=== PATIENT | female | born 1985 | race Caucasian/White ===

== ENCOUNTER 2018-07-07 18:06 | Emergency (ER) | payer MEDICAID ==
[2018-07-07 18:55] LABS: BILIRUBIN,URINE NEGATIVE (NEGATIVE); GLUCOSE, URINE (UA) NEGATIVE (NEGATIVE); KETONES,URINE (UA) NEGATIVE (NEGATIVE); LEUKOCYTE ESTERASE, URINE NEGATIVE (NEGATIVE); NITRITE,URINE NEGATIVE (NEGATIVE); OCCULT BLOOD,URINE TRACE-LYSE (NEGATIVE); PH,URINE 7.5 PH (5.0-7.5); PROTEIN,URINE NEGATIVE (NEGATIVE); UROBILINOGEN,URINE 0.2 (NORMAL) E.U./dL (NORMAL)
[2018-07-07 19:01] LABS: CLARITY,URINE CLEAR (CLEAR); HCG UR QUAL NEGATIVE
[2018-07-07] MEDS: SUCRALFATE 1 GM/10 ML UDC PO STA (19:06)
[2018-07-07] MEDS: FAMOTIDINE 20 MG TABLET PO STA (19:06)
[2018-07-07] MEDS: MAG HYDROX/AL HYDROX/SIMETH 30 ML UDC PO STA (19:06)
--- NOTE | 2018-07-07 19:06 | ED Physician Documentation ---
PD HPI ABD PAIN - Stated complaint Stated Complaint: STOMACH PX - Chief complaint Chief Complaint: Abd Pain - History obtained from History obtained from: Patient - History of Present Illness Timing - onset: How many days ago (3) Timing - duration: Days (3) Timing - details: Gradual onset Pain level max: 8 Pain level now: 6 Quality: Aching, Pain Location: Epigastric Improved by: Other (nothing) Worsened by: Eating Associated symptoms: Nausea, Vomiting. No: Fever, Hematemesis, Diarrhea, Constipation, Melena, Hematochezia, Dysuria, Hematuria Similar symptoms before: Diagnosis (pancreatitis) Recently seen: Not recently seen - Additional information Additional information: Patient is a 32-year-old female who states she has a history of chronic pancreatitis. States this was secondary to heavy drinking. States rarely drinks alcohol now. No recent increase. Started with epigastric pain and is now progressed to vomiting. No fevers. She states feels similar to her prior pancreatitis flares Review of Systems Constitutional: denies: Fever, Chills GI: reports: Nausea, Vomiting. 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 07/07/18 Ondansetron Odt [Zofran] 4 mg TL Q6H PRN #10 tablet 07/07/18 Oxycodone HCl/Acetaminophen 1 - 2 each PO Q6H PRN #10 tablet 07/07/18 [Percocet 5-325 mg Tablet] hydrOXYzine HCl [Hydroxyzine HCl] 07/07/18 - Allergies Allergies/Adverse Reactions: Allergies Allergy/AdvReac Type Severity Reaction Status Date / Time amoxicillin [Amoxicillin] Allergy Rash Verified 07/07/18 18:20 amoxicillin trihydrate * Allergy Rash Verified 07/07/18 18:20 [From Augmentin] potassium clavulanate * Allergy Rash Verified 07/07/18 18:20 [From Augmentin] montelukast sodium * AdvReac Unknown Verified 07/07/18 18:20 [From Singulair] - Social History Does the pt smoke?: Yes Smoking Status: Current every day smoker Does the pt drink ETOH?: No Does the pt have substance abuse?: No - Immunizations Immunizations are current?: No Immunizations: TDAP >10years/unknown - POLST Patient has POLST: No PD ED PE NORMAL - Vitals Vital signs reviewed: Yes - General General: Alert and oriented X 3, No acute distress, Well developed/nourished - HEENT HEENT: Moist mucous membranes - Neck Neck: Supple, no meningeal sign - Cardiac Cardiac: RRR - Respiratory Respiratory: No respiratory distress, Clear bilaterally - Abdomen Abdomen: Soft, Non distended, Other (Tender palpation epigastric without peritoneal signs) - Back Back: No spinal TTP - Derm Derm: Warm and dry - Neuro Neuro: Alert and oriented X 3 - Psych Psych: Normal mood, Normal affect Results - Vitals Vitals: Vital Signs - 24 hr 07/07/18 07/07/18 18:18 20:11 Temperature 36.7 C Heart Rate 109 H 90 Respiratory 15 16 Rate Blood Pressure 130/83 H 130/80 O2 Saturation 98 98 Oxygen O2 Source Room air - Labs Labs: Laboratory Tests 07/07/18 07/07/18 07/07/18 18:50 18:50 19:27 WBC 13.7 H RBC 4.84 Hgb 13.3 Hct 40.5 MCV 83.6 MCH 27.4 MCHC 32.8 RDW 13.8 Plt Count 298 MPV 8.3 Neut # (Auto) 10.5 H Lymph # (Auto) 2.2 Pratt # (Auto) 0.6 Eos # (Auto) 0.2 Baso # (Auto) 0.1 Absolute Nucleated RBC 0.01 Nucleated RBC % 0.0 Sodium Potassium Chloride Carbon Dioxide Anion Gap BUN Creatinine Estimated GFR (MDRD) Glucose Calcium Total Bilirubin AST ALT Alkaline Phosphatase Total Protein Albumin Globulin Albumin/Globulin Ratio Lipase Urine Color YELLOW Urine Clarity CLEAR Urine pH 7.5 Ur Specific [place] 1.025 1.025 Urine Protein NEGATIVE Urine Glucose (UA) NEGATIVE Urine Ketones NEGATIVE Urine Occult Blood TRACE-LYSE Urine Nitrite NEGATIVE Urine Bilirubin NEGATIVE Urine Urobilinogen 0.2 (NORMAL) Ur Leukocyte Esterase NEGATIVE Ur Microscopic Review NOT INDICATED Urine Culture Comments NOT INDICATED Urine HCG, Qual NEGATIVE 07/07/18 19:27 WBC RBC Hgb Hct MCV MCH MCHC RDW Plt Count MPV Neut # (Auto) Lymph # (Auto) Pratt # (Auto) Eos # (Auto) Baso # (Auto) Absolute Nucleated RBC Nucleated RBC % Sodium 137 Potassium 4.1 Chloride 99 L Carbon Dioxide 30 Anion Gap 8.0 BUN 12 Creatinine 0.6 Estimated GFR (MDRD) 114 Glucose 109 H Calcium 9.1 Total Bilirubin 0.7 AST 17 ALT 13 Alkaline Phosphatase 68 Total Protein 7.7 Albumin 4.4 Globulin 3.3 Albumin/Globulin Ratio 1.3 Lipase 33 Urine Color Urine Clarity Urine pH Ur Specific [place] Urine Protein Urine Glucose (UA) Urine Ketones Urine Occult Blood Urine Nitrite Urine Bilirubin Urine Urobilinogen Ur Leukocyte Esterase Ur Microscopic Review Urine Culture Comments Urine HCG, Qual PD MEDICAL DECISION MAKING - ED course Complexity details: reviewed results, re-evaluated patient, considered differential, d/w patient ED course: Patient is a 32-year-old female with what feels like her recurrent pancreatitis. She is well-appearing, nontoxic. Afebrile. Given Zofran and is tolerating p.o. without difficulty. Symptoms did not really change with GI cocktail. We discussed observation in the hospital with IV fluids and pain control, she declines this and would like to try outpatient therapy first. Will prescribe pain medication and Zofran for home. Follow a liquid diet and follow-up closely with her doctor. Patient counseled regarding signs and symptoms for which I believe and urgent re-evaluation would be necessary. Patient with good understanding of and agreement to plan and is comfortable going home at this time This document was made in part using voice recognition software. While efforts are made to proofread this document, sound alike and grammatical errors may occur. She does understand that if she fails to improve, she will likely receive a CT scan as well for confirmation. Departure - Departure Disposition: Home, Self Care Clinical Impression: Abdominal pain Qualifiers: Abdominal location: epigastric Qualified Code(s): R10.13 - Epigastric pain Condition: Good Instructions: ED Abdominal Pain Unkn Cause Follow-Up: your,doctor in 3 days [Other] Prescriptions: Omeprazole 20 mg PO DAILY #14 tablet. Ondansetron Odt [Zofran] 4 mg TL Q6H PRN #10 tablet PRN Reason: Nausea / Vomiting Oxycodone HCl/Acetaminophen [Percocet 5-325 mg Tablet] 1 - 2 each PO Q6H PRN #10 tablet PRN Reason: pain Comments: Return if you worsen. Continue the pain medication and Zofran as needed at home you should eat a very bland diet, stick to a liquid diet as much as possible for the next 24 hours. If you are failing to improve or worsening, please return for further evaluation. Do not drink alcohol or drive while on narcotic pain medicine. Note that many narcotic pain relievers also contain tylenol/acetaminophen. Please ensure that your total dose of acetaminophen from all sources does not exceed 3 grams (3000mg) per day. You may constipated on this medication, take a stool softener such as "Colace" twice a day while you are on it. Also recommend a [id number] laxative such as senna or MiraLAX any day that you do not have a bowel movement. If you received narcotic pain medication in the emergency department, do not drive or operate machinery for the next 24 hours. Discharge Date/Time: 07/07/18 20:11
[2018-07-07] MEDS: ONDANSETRON ODT 4 MG TABLET TL STA (19:07)
[2018-07-07 19:31] LABS: BASOPHILS # (AUTO) 0.1 10^3/uL (0.0-0.1); BASOPHILS % (AUTO) 0.8 %; EOSINOPHILS # (AUTO) 0.2 10^3/uL (0.0-0.7); EOSINOPHILS % (AUTO) 1.7 %; HGB - HEMOGLOBIN 13.3 g/dL (12.0-16.0); LYMPHOCYTES # (AUTO) 2.2 10^3/uL (1.5-3.5); LYMPHOCYTES % (AUTO) 16.3 %; MEAN CORPUSCULAR HEMOGLOBIN 27.4 pg (27.0-31.0); MEAN CORPUSCULAR HGB CONC 32.8 g/dL (32.0-36.0); MEAN CORPUSCULAR VOLUME 83.6 fL (81.0-99.0); MEAN PLATELET VOLUME 8.3 fL (7.9-10.8); MONOCYTES # (AUTO) 0.6 10^3/uL (0.0-1.0); MONOCYTES % (AUTO) 4.7 %; NEUTROPHILS # (AUTO) 10.5 10^3/uL (1.5-6.6); NEUTROPHILS % (AUTO) 76.5 %; PLT - PLATELET COUNT 298 10^3/uL (130-450); RED BLOOD COUNT 4.84 10^6/uL (4.20-5.40); RED CELL DISTRIBUTION WIDTH 13.8 % (12.0-15.0); WHITE BLOOD COUNT 13.7 x10^3/uL (4.8-10.8)
[2018-07-07 19:43] LABS: ALBUMIN 4.4 g/dL (3.2-5.5); ALBUMIN/GLOBULIN RATIO 1.3 (1.0-2.2); BILIRUBIN,TOTAL 0.7 mg/dL (0.2-1.0); CALCIUM 9.1 mg/dL (8.5-10.3); CREATININE 0.6 mg/dL (0.4-1.0); TOTAL PROTEIN 7.7 g/dL (6.7-8.2)
[2018-07-07] MEDS: ONDANSETRON ODT 4 MG Prepack 2 TL PRN (20:10)
[2018-07-07] MEDS: oxyCODONE/ACET 5/325 Prepack 4 PO STA (20:10)
[2018-07-07 20:14] VITALS: BP 130/80
== END 2018-07-07 20:11 | disposition home or self-care (01) ==
LOC: ED 18:06
DX: R10.13 Epigastric pain (principal); R11.2 Nausea with vomiting, unspecified; K86.1 Other chronic pancreatitis; F17.200 Nicotine dependence, unspecified, uncomplicated
CPT/HCPCS: 36415; 80053; 81003; 81025; 83690; 85025; 99283; A9270; Q0162; 81001; 87086

== ENCOUNTER 2018-07-11 14:49 | Emergency (ER) | payer MEDICAID ==
--- NOTE | 2018-07-11 17:13 | ED Physician Documentation ---
PD HPI LOWER EXT INJURY - Stated complaint Stated Complaint: FELL, PAIN R HIP/LEG - Chief complaint Chief Complaint: Ext Problem - History obtained from History obtained from: Patient - History of Present Illness PD HPI LOW EXT INJURY LOCATION: Right, Hip Type of injury: Fall Where injury occurred: Home Timing - onset: Last night Timing - duration: Hours Timing - details: Abrupt onset, Still present Improved by: Rest, Ice, Immobilization Worsened by: Moving, Palpating Associated symptoms: Swelling. No: Weakness, Numbness, Tingling Contributing factors: No: Anticoagulated Similar symptoms before: No diagnosis Recently seen: Not recently seen - Additional information Additional information: 32-year-old female fell onto her right hip last night and she has a lot of pain associated with this. She is fallen on this previously a number of years ago and has a defect in the muscle to the right hip. This is always bothered the patient a bit but she is able to ambulate without too much difficulty. She is able to ambulate tonight but has significant pain associated with this. Review of Systems Constitutional: denies: Fever Eyes: denies: Decreased vision Ears: denies: Ear pain Nose: denies: Congestion Respiratory: denies: Cough GI: denies: Vomiting Skin: denies: Rash Musculoskeletal: reports: Extremity pain, Joint pain, Pain with weight bearing. 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 07/07/18 Ondansetron Odt [Zofran] 4 mg TL Q6H PRN #10 tablet 07/07/18 Oxycodone HCl/Acetaminophen 1 - 2 each PO Q6H PRN #10 tablet 07/07/18 [Percocet 5-325 mg Tablet] hydrOXYzine HCl [Hydroxyzine HCl] 07/07/18 Hydrocodone/Acetaminophen 1 - 2 each PO Q6H PRN #14 tablet 07/11/18 [Hydrocodon-Acetaminophen 5-325] - Allergies Allergies/Adverse Reactions: Allergies Allergy/AdvReac Type Severity Reaction Status Date / Time amoxicillin [Amoxicillin] Allergy Rash Verified 07/11/18 15:06 amoxicillin trihydrate * Allergy Rash Verified 07/11/18 15:06 [From Augmentin] potassium clavulanate * Allergy Rash Verified 07/11/18 15:06 [From Augmentin] montelukast sodium * AdvReac Unknown Verified 07/11/18 15:06 [From Singulair] - Social History Does the pt smoke?: Yes Smoking Status: Current every day smoker Does the pt drink ETOH?: No Does the pt have substance abuse?: No - Immunizations Immunizations are current?: Yes Immunizations: TDAP current <10years - POLST Patient has POLST: No PD ED PE NORMAL - Vitals Vital signs reviewed: Yes (hypertensive) - General General: Alert and oriented X 3, No acute distress, Well developed/nourished - HEENT HEENT: Atraumatic, PERRL, EOMI - Respiratory Respiratory: No respiratory distress - Derm Derm: Normal color, Warm and dry, No rash - Extremities Extremities: Other (There is a subtle deformity to the soft tissues of the right hip. There is an area that appears to represent a muscle group. There is tenderness over the trochanter, she is able to bear weight and there is good ROM of the hip joint. ) - Neuro Neuro: Alert and oriented X 3, bias binding folder 2-12 intact, No motor deficit, No sensory deficit, Normal speech Eye Opening: Spontaneous Motor: Obeys Commands Verbal: Oriented GCS Score: 15 - Psych Psych: Normal mood, Normal affect Results - Vitals Vitals: Vital Signs - 24 hr 07/11/18 07/11/18 15:04 17:23 Temperature 37.1 C Heart Rate 99 80 Respiratory 14 16 Rate Blood Pressure 127/88 H 118/79 O2 Saturation 100 99 Oxygen O2 Source Room air - Rads (name of study) right hip. Radiology: Prelim report reviewed, EMP read indepedently, See rad report PD MEDICAL DECISION MAKING - ED course Complexity details: reviewed results, re-evaluated patient, considered differential, d/w patient ED course: 32-year-old female with a contusion to the right hip has an existing defect in the fascia over the muscle and she is landed on this area again. She has no evidence of a fracture she is able to ambulate and stand and bear weight. She is administered some pain medication she is instructed to reduce her weightbearing and follow-up as needed. She is expected to recover fully. Departure - Departure Disposition: 01 Home, Self Care Clinical Impression: Contusion of right hip Qualifiers: Encounter type: initial encounter Qualified Code(s): S70.01XA - Contusion of right hip, initial encounter Condition: Stable Instructions: ED Contusion Hip Follow-Up: [facility] [Provider Group] Prescriptions: Hydrocodone/Acetaminophen [Hydrocodon-Acetaminophen 5-325] 1 - 2 each PO Q6H PRN #14 tablet PRN Reason: pain Discharge Date/Time: 07/11/18 17:27
[2018-07-11 17:24] VITALS: BP 118/79
--- NOTE | 2018-07-11 17:41 | XRAY Report ---
Reason: fall Procedure Date: 07/11/2018 Accession Number: [id number] / [id number] Procedure: XR - Hip w/Pelvis 2-3V RT CPT Code: FULL RESULT: EXAM: RIGHT HIP AND PELVIS RADIOGRAPHY EXAM DATE: 07/11/2018 05:03 PM. HISTORY: Right hip pain since fall last night. COMPARISONS: XR PELVIS 1 OR 2 VIEWS 07/26/2009 2:19 AM. TECHNIQUE: 1 view of the pelvis and 1 view of the hip. FINDINGS: Bones: Normal. No fracture or bone lesion. Joints: The bilateral hip, pubis symphysis, and sacroiliac joints are preserved. Soft Tissues: Normal. No soft tissue swelling. IMPRESSION: Normal pelvis and hip radiography. [facility]
== END 2018-07-11 17:27 | disposition home or self-care (01) ==
LOC: ED 14:49
DX: S70.01XA Contusion of right hip, initial encounter (principal); W18.30XA Fall on same level, unspecified, initial encounter; Y92.009 Unspecified place in unspecified non-institutional (private) residence as the place of occurrence of the external cause; F17.200 Nicotine dependence, unspecified, uncomplicated
CPT/HCPCS: 99283